=== PATIENT | male | born 1960 | race African-American/Black ===

== ENCOUNTER 2025-05-27 09:58 | Emergency (ER) | payer MEDICARE, OTHER ==
[~2025-05-27] VITALS: Ht 180.3 cm; Wt 77.0 kg
[2025-05-27 10:06] VITALS: O2SAT 96
[2025-05-27] MEDS: LIDOCAINE 5% PATCH TOP NR (10:27)
[2025-05-27] MEDS: IBUPROFEN 600MG TABLET PO ONE (10:27)
[2025-05-27] MEDS ORDERED: LIDOCAINE 5% PATCH TOP SCH (10:30)
[2025-05-27] MEDS ORDERED: LIDO700A30 TP (12:06)
[2025-05-27] MEDS ORDERED: IBUP-2029 MT (12:06)
[2025-05-27 12:15] VITALS: BP 127/84; PULSE 88; RESP 18; TEMP 36.8; O2SAT 98
== END 2025-05-27 12:17 | disposition home or self-care (01) ==
LOC: ER 09:58
DX: M54.2 Cervicalgia (principal); M79.18 Myalgia, other site; Z79.899 Other long term (current) drug therapy; Y08.89XA Assault by other specified means, initial encounter; Y93.89 Activity, other specified; Y92.89 Other specified places as the place of occurrence of the external cause; Y99.8 Other external cause status
CPT/HCPCS: 99284